=== PATIENT | male | born 1955 | race Caucasian/White ===

== ENCOUNTER 2017-02-26 19:04 | Emergency (ER) | payer BC ==
[2017-02-26 19:34] VITALS: BP 127/77
--- NOTE | 2017-02-26 19:56 | UC ---
Throat Pain/Nasal Sonu HPI - HPI Summary HPI Summary: SINUS PAIN AND PRESSURE X 5 DAYS COLD SX FOR 10 DAYS, WITH NASAL CONGESTION , PND, COUGH, NO FEVER, NO CHILLS - History of Current Complaint Chief Complaint: UCRespiratory Stated Complaint: SINUSES Time Seen by Provider: 02/26/17 19:29 Hx Obtained From: Patient Onset/Duration: Gradual Onset, Lasting Days - 5, Still Present Severity: Moderate Cough: Nonproductive Associated Signs & Symptoms: Positive: Sinus Discomfort, Nasal Discharge. Negative: Dysphagia, FB Sensation, Drooling, Wheezing, Hoarseness, Fever, Vomiting, Rash - Allergies/Home Medications Allergies/Adverse Reactions: Allergies Allergy/AdvReac Type Severity Reaction Status Date / Time Cefaclor [From [facility]] Allergy Difficulty Verified 02/26/17 19:34 Breathing Home Medications: Home Medications Ascorbic Acid TAB* [Vitamin C TAB*] 4,000 mg PO DAILY 02/26/17 [History Confirmed 02/26/17] Atorvastatin* [Lipitor*] 80 mg PO 1700 02/26/17 [History Confirmed 02/26/17] Cetirizine* [ZyrTEC 10 MG TAB*] 10 mg PO DAILY 02/26/17 [History Confirmed 02/26] Empagliflozin [Jardiance] 10 mg PO DAILY 02/26/17 [History Confirmed 02/26/17] Furosemide TAB* [Lasix TAB*] 20 mg PO DAILY 02/26/17 [History Confirmed 02/26/17 ] Insulin Degludec [Tresiba Flextouch] 80 unit SC BEDTIME 02/26/17 [History Confirmed 02/26/17] Insulin LISPRO* [HumaLOG*] 0 units SUBCUT DIRECTED 02/26/17 [History Confirmed 02/26/17] Liraglutide (NF) [Victoza (NF)] 1.8 mg SUBCUT DAILY 02/26/17 [History Confirmed 02/26/17] Lisinopril TAB* [Prinivil TAB*] 10 mg PO DAILY 02/26/17 [History Confirmed 02/26] Metoprolol Tartrate TAB* [Lopressor TAB*] 25 mg PO DAILY 02/26/17 [History Confirmed 02/26/17] Multivitamins/Minerals TAB* [Thera M Plus TAB*] 1 tab PO DAILY 02/26/17 [ History Confirmed 02/26/17] Jizli-1-Pgrv Ethyl Esters [Lovaza 1 gm] 1 cap PO DAILY 02/26/17 [History Confirmed 02/26/17] metFORMIN* [Glucophage 500 MG TAB *] 500 mg PO BID 02/26/17 [History Confirmed 02/26/17] PMH/Surg Hx/FS Hx/Imm Hx Endocrine History: Diabetes Cardiovascular History: Cardiac Disease, Hypertension, Myocardial Infarction - Surgical History Surgical History: Yes Surgery Procedure, Year, and Place: CAGB x3 vessel. Repair of right quad tendon - Family History Known Family History: Positive: Diabetes - Social History Alcohol Use: None Substance Use Type: None Smoking Status (MU): Never Smoked Tobacco Review of Systems Constitutional: Negative Skin: Negative Eyes: Negative ENT: Sore Throat, Ear Ache, Nasal Discharge, Sinus Congestion, Sinus Pain/ Tenderness Respiratory: Cough Is Patient Immunocompromised?: No All Other Systems Reviewed And Are Negative: Yes Physical Exam Triage Information Reviewed: Yes Appearance: Well-Appearing, No Pain Distress, Obese Vital Signs: Initial Vital Signs Temp 98.2 F 02/26/17 19:27 Pulse 92 02/26/17 19:27 Resp 14 02/26/17 19:27 BP 127/77 02/26/17 19:27 Pulse Ox 98 02/26/17 19:27 Vital Signs Reviewed: Yes Eyes: Positive: Conjunctiva Clear ENT: Positive: Normal ENT inspection, Hearing grossly normal, Pharyngeal erythema, Nasal congestion, Nasal drainage, TMs normal Neck exam: Normal Neck: Positive: Supple, Nontender, No Lymphadenopathy Respiratory: Positive: Chest non-tender, Lungs clear, Normal breath sounds, No respiratory distress Cardiovascular: Positive: RRR, No Murmur, Pulses Normal Throat Pain/Nasal Course/Dx - Differential Dx/Diagnosis Provider Diagnoses: SINUSITIS Discharge - Discharge Plan Condition: Stable Disposition: HOME Prescriptions: Amoxicillin/Clavulanate TAB* [Augmentin TAB 875*] 875 mg PO BID #20 tab Patient Education Materials: Sinusitis (ED) Additional Instructions: REST, INCREASE FLUID, USE FLONASE OTC NASAL SPRAY FOLLOW UP WITH YOUR PCP NEEDED
== END 2017-02-26 20:04 | disposition home or self-care (01) ==
LOC: UCCORT 19:04
DX: J32.9 Chronic sinusitis, unspecified (principal); Z79.4 Long term (current) use of insulin; E11.9 Type 2 diabetes mellitus without complications; I10 Essential (primary) hypertension; I51.9 Heart disease, unspecified; I25.2 Old myocardial infarction; Z95.1 Presence of aortocoronary bypass graft
CPT/HCPCS: 87651; 99212; G0463